=== PATIENT | male | born 1990 | race Caucasian/White ===

== ENCOUNTER 2017-01-09 16:59 | Emergency (ER) | payer BC ==
[2017-01-09 17:15] VITALS: BP 123/78
[2017-01-09] MEDS ORDERED: Ondansetron 4 MG/2 ML SDV IVPUSH ONE (17:54)
[2017-01-09] MEDS ORDERED: Sodium Chloride 0.9% 1,000 ML IV SCH ×2 (18:00→18:30)
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
== END 2017-01-09 21:30 | disposition home or self-care (01) ==
LOC: JP.ED 16:59
DX: E86.0 Dehydration (principal); E10.9 Type 1 diabetes mellitus without complications; E78.00 Pure hypercholesterolemia, unspecified; Z79.4 Long term (current) use of insulin; Z79.899 Other long term (current) drug therapy; Z98.890 Other specified postprocedural states
CPT/HCPCS: 36415; 80053; 82009; 82800; 85025; 96361; 96374; 99284; J2405; J7040